=== PATIENT | male | born 1975 | race American Indian/Alaskan Native ===

== ENCOUNTER → 2023-06-14 09:59 | Outpatient (CLI) | payer OTHER, MEDICAID, SELFPAY ==
[2023-06-14 19:48] LABS: Add Manual Diff / Slide Review NO; Basophils Absolute Auto 100 /uL (0-100); Basophils Percent Auto 0.7 % (0-2); Eosinophils Absolute Auto 300 /uL (0-450); Eosinophils Percent Auto 5.2 % (2-4); Hematocrit 44.5 % (41-53); Lymphocytes Absolute Auto 2000 /uL (1100-4500); Lymphocytes Percent Auto 30.2 % (25-40); Mean Corpuscular HGB Conc 33.8 % (30-36); Mean Corpuscular Hemoglobin 27.1 PG (26-34); Mean Corpuscular Volume 80.3 fL (80-100); Monocytes Absolute Auto 700 /uL (0-900); Monocytes Percent Auto 9.8 % (3-14); Neutrophils Absolute Auto 3600 /uL (1500-7000); Neutrophils Percent Auto 54.1 % (50-75); Platelet Count 202 X10^3/uL (150-400); Red Blood Cell Count 5.54 X10^6/uL (4.5-5.9); Red Cell Distribution Width 14.7 % (11.6-14.8); White Blood Cell Count 6.7 X10^3/uL (4.5-11.0)
[2023-06-14 20:13] LABS: Alanine Aminotransferase 40 IU/L (<50); Albumin 4.2 g/dL (3.5-5.0); Albumin Globulin Ratio 1.4 (1.0-2.8); Alkaline Phosphatase 83 U/L (38-126); Aspartate Aminotransferase 34 IU/L (17-59); BUN Creatinine Ratio 22.8 (6-22); Bilirubin Total 1.1 mg/dL (0.2-1.3); Blood Urea Nitrogen 18 mg/dL (9-20); Calcium 9.6 mg/dL (8.4-10.2); Carbon Dioxide 26 mmol/L (22-32); Chloride 104 mmol/L (98-107); Cholesterol 206 mg/dL (140-199); Estimated Glomerular Filt Rate > 60 mL/min (>60); Globulin 2.9 g/dL (1.7-4.1); Glucose 98 mg/dL (70-100); HDL Cholesterol 51 mg/dL (40-60); HEMOLYSIS < 15 (0-50); LDL Cholesterol Calculated 143 mg/dL (<100); Sodium 139 mmol/L (137-145); Total Protein 7.1 g/dL (6.3-8.2); Triglycerides 60 mg/dL (35-150)
[2023-06-14 20:40] LABS: Hemoglobin A1C% w Est Avg Glu 5.5 % (4.0-6.0)
[2023-06-14 20:51] LABS: TSH w/ Reflex to FT4 0.75 uIU/mL (0.47-4.68)
== END ==
PROVIDERS: PCP Family Medicine; Visit Provider Family Medicine
DX: Z13.1 Encounter for screening for diabetes mellitus (principal); Z13.6 Encounter for screening for cardiovascular disorders; Z13.29 Encounter for screening for other suspected endocrine disorder; Z13.0 Encounter for screening for diseases of the blood and blood-forming organs and certain disorders involving the immune mechanism
CPT/HCPCS: 80053; 80061; 83036; 84443; 85025

== ENCOUNTER → 2023-07-09 14:54 | Outpatient (CLI) | payer OTHER, MEDICAID, SELFPAY ==
--- NOTE | 2023-07-11 10:42 | DI.NM.S_ITS ---
DATE OF SERVICE: 07/10/2023 PROCEDURE: Exercise treadmill stress test without imaging. ORDERING PROVIDER: Tatyana Reid MD INDICATIONS: The patient is a 47-year-old male with exertional dyspnea. FINDINGS: 1. The patient was able to exercise for 7 minutes and 35 seconds on a standard Arnoldo protocol suggesting moderate-severely reduced exercise capacity with an PAT of +29%, achieving 8.5 METS. 2. He had a normal heart rate and blood pressure response to exercise, achieving a maximum heart rate of 156 BPM (90% of his predicted maximum). His O2 saturation at peak exercise was borderline decreased at 91%. 3. He had no chest discomfort or other anginal symptoms. 4. His resting ECG showed sinus rhythm with inferior ST depression and T-wave inversion. This became accentuated with stress and associated with additional ST depression in the lateral leads but became upsloping by 1 minute of recover, reducing specificity. There were no arrhythmias. IMPRESSION: 1. Abnormal exercise treadmill stress test for ischemia but with reduced specificity because of resting ECG abnormalities. Consider obtaining an exercise stress test with imaging. 2. Moderate-severely reduced exercise capacity without angina or arrhythmias. Oxygen saturation was borderline low at 91% at peak exercise. Valdo Barber - COURTNEY/nabor/ASHLEE doc#: [id number]/job#: [id number] dd: 07/10/2023 16:48:00 dt: 07/11/2023 02:27:00 DICTATING MD/COPIES TO: Jareth Somers MD; Tatyana Reid MD COPIES CHARLEEN: CHANDLER; ; Tatyana Reid MD
== END ==
PROVIDERS: PCP Family Medicine; Referring Provider Family Medicine; Visit Provider Family Medicine
DX: R06.09 Other forms of dyspnea (principal); R94.39 Abnormal result of other cardiovascular function study; E66.01 Morbid (severe) obesity due to excess calories; Z68.41 Body mass index [BMI] 40.0-44.9, adult
CPT/HCPCS: 93017

== ENCOUNTER → 2024-03-18 13:20 | Outpatient (CLI) | payer BC, SELFPAY ==
[2024-03-18 18:58] LABS: BUN Creatinine Ratio 21.3 (6-22); Blood Urea Nitrogen 17 mg/dL (9-20); Calcium 9.6 mg/dL (8.4-10.2); Carbon Dioxide 30 mmol/L (22-32); Chloride 104 mmol/L (98-107); Estimated Glomerular Filt Rate > 60 mL/min (>60); Glucose 81 mg/dL (70-100); HEMOLYSIS < 15 (0-50); Potassium 4.6 mmol/L (3.4-5.1); Sodium 139 mmol/L (137-145)
[2024-03-18 19:09] LABS: LDL Cholesterol Direct 90 mg/dL (<100)
== END ==
PROVIDERS: PCP Family Medicine; Visit Provider Family Medicine
DX: G47.33 Obstructive sleep apnea (adult) (pediatric) (principal); I10 Essential (primary) hypertension; E78.2 Mixed hyperlipidemia; R06.09 Other forms of dyspnea
CPT/HCPCS: 80048; 83721

== ENCOUNTER 2024-04-15 07:39 | Day surgery (SDC) | payer BC, SELFPAY ==
--- NOTE | 2024-04-15 | PATH_ITS ---
[facility] Accession Number: [id number] No. of containers..01 Tissue . 01 Material submitted: . rectum - RECTAL POLYP X2 . 01 Diagnosis: RECTAL POLYPS: Hyperplastic polyp x2. [facility] 04/17/2024 1120 Local . 01 Electronically signed: . Inocencio Fraga MD, PhD, Pathologist NPI- [id number] . 01 Gross description: . Received in formalin with two patient identifiers and rectal polyp x2, are two humphries soft tissue fragments, 0.5 to 0.6 cm in greatest dimension, submitted in A1. ([id number]) /MRV 04/16/2024 2111 Local . 01 Pathologist provided ICD-10: K62.1 . 01 CPT . 344603 Specimen Comment: A courtesy copy of this report has been sent to [phone] Performed at: [address] [facility] [address] [address], [place], [place] [id number] MD French Sim MD Phone: [phone]
[2024-04-15 08:12] VITALS: BP 134/92; PULSE 68; RESP 20; TEMP 35.8; O2SAT 97
--- NOTE | 2024-04-15 08:15 | PM.HP.1 ---
History of Present Illness History of Present Illness Date Patient Seen: 04/15/24 Time Patient Seen: 08:15 Chief complaint: Colonoscopy w/poss bx Narrative: 48-year-old man positive Cologuard test here for diagnostic colonoscopy. Last colonoscopy 11 years ago. He has a history a sigmoid colectomy for diverticular disease. COUNTS INCLUDE 234 BEDS AT THE [facility] Medical History (Updated 03/16/24 @ 10:40 by Tatyana Reid MD) Mild CAD Paroxysmal nocturnal dyspnea Former tobacco use Dental infection Marijuana dependence EtOH dependence Wheezing History of diverticulitis of colon Surgical History (Updated 10/02/23 @ 20:32 by Tatyana Reid MD) S/P cardiac catheterization History of partial colectomy Social History Smoking Status: Former smoker alcohol intake: current additional social history: has not seen doctor for 5 yrs moved [place] in [place], [employer]: Gerdys all: none meds: aleve TOB: 1 cig/week. was smoking all day MJ ETOH: heavy alcohol. much less now. 2-3 /day MJ: daily exercise: goes to the gym tries to go 3x this week. swim, hike cardio. FHX: negative per pt PGF of heart attack mi at 55 yo no other [facility] 05/2023 [facility] Meds Home Medications and Allergies Home Medications Medication Instructions Recorded Confirmed Type fluticasone 250 mcg-salmeterol 50 1 inh inhalation BID use every 11/18/23 04/15/24 Rx mcg/dose blistr powdr for day. rise mouth after use #60 ea inhalation atorvastatin 20 mg tablet 20 mg PO BEDTIME heart attack/ 12/18/23 04/15/24 Rx stroke prevention #90 tabs buspirone 10 mg tablet See Rx Instructions PO BID PRN 01/22/24 04/15/24 Rx anxiety, irritability #30 tabs lisinopril 10 mg tablet 10 mg PO DAILY for blood pressure. 02/27/24 04/15/24 Rx take every day even if normal #90 tabs aspirin 81 mg capsule 81 mg PO DAILY 04/15/24 04/15/24 History Allergies Allergy/AdvReac Type Severity Reaction Status Date / Time No Known Drug Allergies Allergy Verified 04/15/24 07:55 Exam Vital Signs (past 8 hours): - 04/15/24 08:12 Temperature 96.4 F L Pulse Rate 68 Respiratory Rate 20 Blood Pressure 134/92 H Pulse Oximetry 97 Oxygen Delivery Method Room Air Oxygen Delivery Method Room Air Narrative Exam Narrative: General adult man alert oriented no acute distress Chest nonlabored respiration Extremities warm well perfused Assessment & Plan Assessment and plan (1) Positive colorectal cancer screening using Cologuard test: Status: Acute Assessment & Plan narrative: Diagnostic colonoscopy recommended.. Technical details were discussed. Risks, benefits, alternatives explained. Risks including but not limited to myocardial infarction, aspiration, bleeding, pain, missed lesion, incomplete examination, need for further radiographic studies, intestinal injury, and need for major abdominal surgery were discussed. All questions were answered to their satisfaction, and they are in agreement with this plan. Time-Based Coding :: [TOTAL MINUTES] spent with patient and on the chart (including review of chart, obtaining history, exam, reviewing outside data, placing orders, documenting exam and treatment plan, and counseling patient) on [DATE].
[2024-04-15 09:23] VITALS: BP 111/74; PULSE 62; RESP 16; TEMP 36.2; O2SAT 93
--- NOTE | 2024-04-15 09:26 | P.OP.COLON_ITS ---
Operative Date/Time/Diagnoses Date of procedure: 04/15/24 Time of procedure: 09:26 Pre-op diagnosis: Positive Cologuard Post-op diagnosis: other (Colonic polyps x2) Procedure & Clinicians Study performed: Diagnostic colonoscopy and polypectomy Same procedure as scheduled: Yes Indications: Positive Cologuard Surgeon: Cesar Gar Procedure Notes Procedure in detail: The history and physical was performed/updated and the patient is ASA class is 2. The procedure was discussed in detail with the patient. Potential risks complications including infection, bleeding, missed diagnosis, perforation, need for surgery, and were explained. Their questions were answered and informed consent was obtained. Patient was brought to the procedure room and placed standard monitoring equipment. The patient's vital signs were monitored continuously throughout the entire procedure. Prior to starting time-out was performed. The patient was placed in the left lateral recumbent position. Procedural sedation was administered by anesthesia. Examination began with a thorough inspection of the perianal area there was no evidence of fissures, fistulae, external hemorrhoids or cutaneous malignancy. The colonoscopy scope was then placed into the anal canal and was advanced to the cecum, which was identified by the ileocecal valve, the appendiceal orifice and the confluence of the taenia. The scope was then slowly withdrawn examining colon thoroughly in all directions, irrigating it of any residual stool. The scope was retroflexed within the rectum The patient tolerated the procedure well. They will be discharged once criteria are met. The prep was of good/excellent quality. The withdrawl time was 7 minutes. FINDINGS * Rectum polyps each proximally 5 mm removed with cold snare * Normal colon rectal anastomosis. * Mild diverticulosis of distal colon Specimen(s): other (Rectal polyps x2) Impression: Colonic polyps x2 Post-procedure Recommendations: Colonoscopy in 5 years and High fiber diet Disposition: same day surgery
[2024-04-15 09:28] VITALS: BP 111/75; PULSE 65; RESP 18; O2SAT 96
[2024-04-15 09:33] VITALS: BP 118/85; PULSE 64; RESP 18; TEMP 36.7; O2SAT 96
[2024-04-15 09:38] VITALS: BP 123/93; PULSE 66; RESP 14; O2SAT 98
== END 2024-04-15 10:25 | disposition home or self-care (01) ==
PROVIDERS: PCP Family Medicine; Referring Provider Surgery; Visit Provider Surgery
PROC: 0DJD8ZZ Inspection of Lower Intestinal Tract, Via Natural or Artificial Opening Endoscopic (ICD-10-PCS; CPT 45378; principal; 2024-04-15 08:45)
DX: Z12.11 Encounter for screening for malignant neoplasm of colon (principal); R19.5 Other fecal abnormalities; Z90.49 Acquired absence of other specified parts of digestive tract; K57.30 Diverticulosis of large intestine without perforation or abscess without bleeding; K62.1 Rectal polyp
CPT/HCPCS: 45385; J2704

== ENCOUNTER 2024-09-17 15:24 | Emergency (ER) | payer BC, SELFPAY ==
[2024-09-17 15:40] VITALS: BP 119/77; PULSE 63; RESP 14; TEMP 36.9; O2SAT 98; BMI 39.1
--- NOTE | 2024-09-17 16:56 | ED.ABDPAIN ---
HPI - Abdominal Pain <Jocelin Croft PA-C - Last Filed: 09/17/24 19:56> General Chief Complaint: Abdominal Pain Stated Complaint: R Lower Abdominal Pain Time Seen by Provider: 09/17/24 16:56 Mode of arrival: Ambulatory History of Present Illness HPI narrative: Mr. Barber is a pleasant 48-year-old male with a past medical history of diverticulitis s/p sigmoidectomy 20 years ago, AB, HTN, HLD who presents to the emergency department for quadrant abdominal pain since 11:00 a.m. this morning. Patient was sitting on his couch watching TV when he developed subtle gradually worsening sharp stabbing pain in the right lower quadrant of the abdomen that has persisted and gotten worse. Not relieved with a joint, an edible, oxycodone, Tylenol. Denies fevers, chills, chest pain, shortness of breath, nausea, vomiting, diarrhea, constipation, dysuria, hematuria, flank pain. Pain is worsened with deep palpation and with taking a deep breath. He went to the clinic on [facility] who sent him here for further evaluation. Related Data Home Medications Medication Instructions Recorded Confirmed aspirin 81 mg capsule 81 mg PO DAILY 04/15/24 09/17/24 Previous Rx's Medication Instructions Recorded fluticasone 250 mcg-salmeterol 50 1 inh inhalation BID use every 11/18/23 mcg/dose blistr powdr for day. rise mouth after use #60 ea inhalation atorvastatin 20 mg tablet 20 mg PO BEDTIME heart attack/ 12/18/23 stroke prevention #90 tabs lisinopril 10 mg tablet 10 mg PO DAILY for blood pressure. 08/29/24 take every day even if normal #90 tabs Allergies Allergy/AdvReac Type Severity Reaction Status Date / Time No Known Drug Allergies Allergy Verified 09/17/24 15:40 Review of Systems <Jocelin Croft PA-C - Last Filed: 09/17/24 19:56> Review of Systems ROS Unobtainable: All systems reviewed & are unremarkable except as noted in HPI and below Patient History <Jocelin Croft PA-C - Last Filed: 09/17/24 19:56> Medical History Mild CAD Paroxysmal nocturnal dyspnea Former tobacco use Dental infection Marijuana dependence EtOH dependence Wheezing History of diverticulitis of colon Surgical History S/P cardiac catheterization History of partial colectomy Social History Smoking Status: Unknown if ever smoked alcohol intake: current additional social history: has not seen doctor for 5 yrs moved [place], [place], [place] [employer]: [place] all: none meds: aleve TOB: 1 cig/week. was smoking all day MJ ETOH: heavy alcohol. much less now. 2-3 /day MJ: daily exercise: goes to the gym tries to go 3x this week. swim, hike cardio. FHX: negative per pt PGF of heart attack mi at 55 yo no other [facility] 05/2023 js Smoking Status: Unknown if ever smoked Exam <Jocelin Croft PA-C - Last Filed: 09/17/24 19:56> Narrative Exam Narrative: GENERAL: 48 year old patient appears stated age. Well-developed patient, in no acute distress. HEAD: Atraumatic. Normocephalic. NECK: Trachea midline. Cervical ROM intact. CARDIOVASCULAR: Regular rate and rhythm. RESPIRATORY: ?Nonlabored respirations. ?Speaking in clear, full sentences. ?Clear to auscultation. Breath sounds equal bilaterally. GASTROINTESTINAL: Abdomen soft, non-tender, nondistended. Bowel sounds present. Patient has reported tenderness to palpation at [place]'s point, only present with deep palpation. No rebound or guarding. Negative psoas sign, negative Rovsing sign. EXTREMITIES: No edema or joint tenderness. BACK: No CVA tenderness. NEURO: AOx3. ?Clear speech. ?Moves all 4 extremities appropriately. SKIN: No rash or erythema of visible areas Initial Vital Signs Initial Vital Signs: Vital Signs Temperature 98.4 F 09/17/24 15:40 Pulse Rate 63 09/17/24 15:40 Respiratory Rate 14 09/17/24 15:40 Blood Pressure 119/77 09/17/24 15:40 Pulse Oximetry 98 09/17/24 15:40 Oxygen Delivery Method Room Air 09/17/24 15:40 <Rimma Alberto DO - Last Filed: 09/17/24 23:20> Initial Vital Signs Initial Vital Signs: Vital Signs Temperature 98.4 F 09/17/24 15:40 Pulse Rate 63 09/17/24 15:40 Respiratory Rate 14 09/17/24 15:40 Blood Pressure 119/77 09/17/24 15:40 Pulse Oximetry 98 09/17/24 15:40 Oxygen Delivery Method Room Air 09/17/24 15:40 Course <Jocelin Croft PA-C - Last Filed: 09/17/24 19:56> Orders Ordered: ED Orders 09/17/24 16:40 Complete Blood Count AUTO DIFF Stat Comprehensive Metabolic Panel Stat Lipase Stat 09/17/24 17:07 CT abdomen pelvis w con Stat Discontinued Medications Sodium Chloride (Normal Saline 0.9%) 1,000 mls @ 1,000 mls/hr IV BOLUS ONE Stop: 09/17/24 18:30 Last Infusion: 09/17/24 18:31 Dose: Infused Documented By: Admin: 09/17/24 17:38 Dose: 1,000 mls/hr Documented By: NATO Ketorolac Tromethamine (Ketorolac 30 Mg/Ml Vial) 15 mg IV NOW ONE Stop: 09/17/24 19:22 Last Admin: 09/17/24 19:45 Dose: 15 mg Documented By: NATO Morphine Sulfate (Morphine 4 Mg/Ml Inj) 4 mg IV NOW ONE Stop: 09/17/24 17:08 Last Admin: 09/17/24 17:17 Dose: 4 mg Documented By: NATO Ondansetron HCl (Ondansetron 4 Mg/2 Ml Inj) 4 mg IV NOW PRN PRN Reason: Nausea And Vomiting Last Admin: 09/17/24 17:17 Dose: 4 mg Documented By: NATO Ondansetron HCl (Ondansetron 4 Mg Odt) 4 mg PO NOW PRN PRN Reason: Nausea And Vomiting Vital Signs Vital signs: Vital Signs - 8 hr 09/17/24 15:40 09/17/24 17:29 09/17/24 17:30 Temperature 98.4 F Pulse Rate 63 57 L Respiratory Rate 14 16 Blood Pressure 119/77 112/58 L 98/59 L Pulse Oximetry 98 99 Oxygen Delivery Method Room Air Room Air 09/17/24 17:41 09/17/24 18:46 09/17/24 19:49 Temperature 97.9 F Pulse Rate 53 L 65 61 Respiratory Rate 16 16 16 Blood Pressure 95/63 120/76 107/60 Pulse Oximetry 99 97 96 Oxygen Delivery Method Room Air Room Air Room Air <Rimma Alberto DO - Last Filed: 09/17/24 23:20> Orders Ordered: ED Orders 09/17/24 16:40 Complete Blood Count AUTO DIFF Stat Comprehensive Metabolic Panel Stat Lipase Stat 09/17/24 17:07 CT abdomen pelvis w con Stat Discontinued Medications Sodium Chloride (Normal Saline 0.9%) 1,000 mls @ 1,000 mls/hr IV BOLUS ONE Stop: 09/17/24 18:30 Last Infusion: 09/17/24 18:31 Dose: Infused Documented By: Admin: 09/17/24 17:38 Dose: 1,000 mls/hr Documented By: SB Ketorolac Tromethamine (Ketorolac 30 Mg/Ml Vial) 15 mg IV NOW ONE Stop: 09/17/24 19:22 Last Admin: 09/17/24 19:45 Dose: 15 mg Documented By: SB Morphine Sulfate (Morphine 4 Mg/Ml Inj) 4 mg IV NOW ONE Stop: 09/17/24 17:08 Last Admin: 09/17/24 17:17 Dose: 4 mg Documented By: SB Ondansetron HCl (Ondansetron 4 Mg/2 Ml Inj) 4 mg IV NOW PRN PRN Reason: Nausea And Vomiting Last Admin: 09/17/24 17:17 Dose: 4 mg Documented By: SB Ondansetron HCl (Ondansetron 4 Mg Odt) 4 mg PO NOW PRN PRN Reason: Nausea And Vomiting Vital Signs Vital signs: Vital Signs - 8 hr 09/17/24 15:40 09/17/24 17:29 09/17/24 17:30 Temperature 98.4 F Pulse Rate 63 57 L Respiratory Rate 14 16 Blood Pressure 119/77 112/58 L 98/59 L Pulse Oximetry 98 99 Oxygen Delivery Method Room Air Room Air 09/17/24 17:41 09/17/24 18:46 09/17/24 19:49 Temperature 97.9 F Pulse Rate 53 L 65 61 Respiratory Rate 16 16 16 Blood Pressure 95/63 120/76 107/60 Pulse Oximetry 99 97 96 Oxygen Delivery Method Room Air Room Air Room Air MDM - Abdominal Pain <Jocelin Croft PA-C - Last Filed: 09/17/24 19:56> Medical Records Attestation: I reviewed the patient's medical records. Medical records narrative: PCP note today with Dr. Jareth Mills. Lab Data 09/17/24 16:40 09/17/24 16:40 Labs: Lab Results 09/17/24 Range/Units 16:40 WBC 6.9 (4.5-11.0) X10^3/uL RBC 5.32 (4.5-5.9) X10^6/uL Hgb 14.8 (13.5-17.5) g/dL Hct 43.3 (41-53) % MCV 81.5 (80-100) fL MCH 27.9 (26-34) PG MCHC 34.2 (30-36) % RDW 14.0 (11.6-14.8) % Plt Count 168 (150-400) X10^3/uL Neut % (Auto) 62.1 (50-75) % Lymph % (Auto) 27.2 (25-40) % [place] % (Auto) 7.4 (3-14) % Eos % (Auto) 2.8 (2-4) % Baso % (Auto) 0.5 (0-2) % Neut # (Auto) 4300 (9949-7278) /uL Lymph # (Auto) 1900 (0542-9379) /uL [place] # (Auto) 500 (0-900) /uL Eos # (Auto) 200 (0-450) /uL Baso # (Auto) 0 (0-100) /uL Sodium 139 (137-145) mmol/L Potassium 4.1 (3.4-5.1) mmol/L Chloride 107 (98-107) mmol/L Carbon Dioxide 25 (22-32) mmol/L BUN 16 (9-20) mg/dL Creatinine 0.80 (0.66-1.25) mg/dL Estimated GFR > 60 (>60) mL/min BUN/Creatinine Ratio 20.0 (6-22) Glucose 105 H (70-99) mg/dL Calcium 9.2 (8.4-10.2) mg/dL Total Bilirubin 0.7 (0.2-1.3) mg/dL AST 34 (17-59) IU/L ALT 37 (<50) IU/L Alkaline Phosphatase 88 (38-126) U/L Total Protein 7.2 (6.3-8.2) g/dL Albumin 4.5 (3.5-5.0) g/dL Globulin 2.7 (1.7-4.1) g/dL Albumin/Globulin Ratio 1.7 (1.0-2.8) Lipase 192 (23-300) U/L Point of care testing: Urine Dip Bedside Urine Glucose Negative Bedside Urine Bilirubin - Negative Bedside Urine Ketone - Negative Urine Specific [place] 1.030 Bedside Urine Occult Blood - Negative Bedside Urine pH 5.5 Bedside Urine Protein - Negative Bedside Urine Urobilinogen - Negative Bedside Urine Nitrite - Negative Bedside Urine Leukocytes - Negative Esterase Imaging Data CT scan - abdomen/pelvis: Radiologist's Impression: PROCEDURE: CT ABDOMEN PELVIS W CON INDICATIONS: RLQ abd pain. hx sigmoidectomy. TECHNIQUE: After the administration of intravenous contrast, axial sections acquired from the lung bases to the pubic symphysis. Coronal and sagittal reformats were performed. For radiation dose reduction, the following was used: automated exposure control, adjustment of mA and/or kV according to patient size. COMPARISON: None. FINDINGS: Image quality: Diagnostic. Lower Chest: 3 mm left lower lobe nodule series 3, image 20. No priors. ABDOMEN: Liver: No solid mass. Gallbladder: No radiopaque gallstones or wall thickening. Biliary ducts: No biliary dilation. Pancreas: No ductal dilation. Spleen: Size is within normal limits. Adrenal Glands: No adrenal nodules. Kidneys and Ureters: No hydronephrosis. Punctate nonobstructing right renal calcification. Stomach and Bowel: Normal colonic caliber, without significant wall thickening. Appendix is normal. Colonic diverticula present. Peritoneum: No abnormal intraperitoneal fluid. No free air. Ventral Wall: No significant ventral hernia. Abdominal Nodes: No retroperitoneal or mesenteric adenopathy by size criteria. Vessels: Aorta and inferior vena cava are normal in size. PELVIS: Pelvic Organs: Unremarkable. Bladder: No bladder wall thickening, accounting for underdistention. Pelvic Nodes: No enlarged lymph nodes. Miscellaneous: Fat containing inguinal hernias are seen. Bones: No aggressive osseous abnormality. IMPRESSION: No acute intra-abdominal or pelvic process. Punctate nonobstructing right renal calculus. Appendix is normal. Nonspecific 3 mm left lower lobe nodule. If patient is considered high risk, [address] follow-up is recommended. Dictated by: Mignon Fan M.D. on 09/17/2024 at 19:02 Approved by: Mignon Fan M.D. on 09/17/2024 at 19:04 [facility] Narrative Medical decision making narrative: 48-year-old male with a past medical history of diverticulitis s/p sigmoidectomy 20 years ago, AB, HTN, HLD who presents to the emergency department for quadrant abdominal pain since 11:00 a.m. this morning. Differential diagnosis includes but is not limited to appendicitis, epiploic appendagitis, UTI, nephrolithiasis, diverticulitis, SBO, muscle strain, etc. On exam the patient is in no acute distress, nontoxic appearing, vital signs appropriate. He has reported pain with deep palpation of the right lower quadrant of the abdomen specifically at [place]'s point, it is quite difficult for me to elicit as he states it is only present with a very deep palpation however pain is also worse with movement. No inciting injury. Abdominal labs obtained in triage, we will obtain CT abdomen and pelvis with IV contrast, treat pain with Zofran and morphine at this time. Point of care UA negative. Labs overall reassuring with a normal WBC count 6.9, remainder of CBC all within normal limits. Normal sodium 139, potassium 4.1 when BUN 16, creatinine 0.80. Glucose 105. Normal LFTs. Normal lipase 192. CT AP reveals no acute intra-abdominal or pelvic process. Punctate nonobstructing right renal calculus. Appendix is normal. Nonspecific 3 mm left lower lobe nodule. Patient's pain was not completely resolved so we will also try Toradol. Discussed all results with the patient, provided him with a printed copy of his CT scan report and discussed incidental findings and the importance of follow up with CT scan of chest in 12 months for left lower lobe nodule, he does have a remote history of tobacco smoking. At this time it is not 100% clear what is causing the patient's abdominal pain so we discussed supportive care with rest, hydration, bland diet, ibuprofen/acetaminophen as needed for pain, prompt follow up with PCP and very strict ED return precautions. Repeat abdominal exam is benign. Patient verbalized understanding of all information, is agreeable with the plan, stable for discharge home. <Rimma Alberto, - Last Filed: 09/17/24 23:20> Lab Data Labs: Lab Results 09/17/24 Range/Units 16:40 WBC 6.9 (4.5-11.0) X10^3/uL RBC 5.32 (4.5-5.9) X10^6/uL Hgb 14.8 (13.5-17.5) g/dL Hct 43.3 (41-53) % MCV 81.5 (80-100) fL MCH 27.9 (26-34) PG MCHC 34.2 (30-36) % RDW 14.0 (11.6-14.8) % Plt Count 168 (150-400) X10^3/uL Neut % (Auto) 62.1 (50-75) % Lymph % (Auto) 27.2 (25-40) % [place] % (Auto) 7.4 (3-14) % Eos % (Auto) 2.8 (2-4) % Baso % (Auto) 0.5 (0-2) % Neut # (Auto) 4300 (4473-7713) /uL Lymph # (Auto) 1900 (3807-8173) /uL [place] # (Auto) 500 (0-900) /uL Eos # (Auto) 200 (0-450) /uL Baso # (Auto) 0 (0-100) /uL Sodium 139 (137-145) mmol/L Potassium 4.1 (3.4-5.1) mmol/L Chloride 107 (98-107) mmol/L Carbon Dioxide 25 (22-32) mmol/L BUN 16 (9-20) mg/dL Creatinine 0.80 (0.66-1.25) mg/dL Estimated GFR > 60 (>60) mL/min BUN/Creatinine Ratio 20.0 (6-22) Glucose 105 H (70-99) mg/dL Calcium 9.2 (8.4-10.2) mg/dL Total Bilirubin 0.7 (0.2-1.3) mg/dL AST 34 (17-59) IU/L ALT 37 (<50) IU/L Alkaline Phosphatase 88 (38-126) U/L Total Protein 7.2 (6.3-8.2) g/dL Albumin 4.5 (3.5-5.0) g/dL Globulin 2.7 (1.7-4.1) g/dL Albumin/Globulin Ratio 1.7 (1.0-2.8) Lipase 192 (23-300) U/L Point of care testing: Urine Dip Bedside Urine Glucose Negative Bedside Urine Bilirubin - Negative Bedside Urine Ketone - Negative Urine Specific [place] 1.030 Bedside Urine Occult Blood - Negative Bedside Urine pH 5.5 Bedside Urine Protein - Negative Bedside Urine Urobilinogen - Negative Bedside Urine Nitrite - Negative Bedside Urine Leukocytes - Negative Esterase Discharge Plan Departure Patient Disposition: Home Clinical Impression: Abdominal pain, RLQ, Left lower lobe pulmonary nodule Instructions: DI for Abdominal Pain-Adult Activity Restrictions/Additional Instructions: Dear Mr. Barber, Thank you for coming to the emergency department. Today, we completed a work up for right lower quadrant abdominal pain. Sometimes, we do not always find the cause for your symptoms in one ER visit. The findings on your exam today and on your blood work and imaging is reassuring. At this time, it is not 100% certain what is causing your symptoms, but we feel you can be discharged from the emergency department. It is possible this may worsen or you may get better. Please, if you get worse or your symptoms change, return to the emergency department. Otherwise, please follow up with your primary care doctor in 1-2 days or any of the specialists we have provided or recommended. Please take Ibuprofen (Motrin/Advil) or Acetaminophen (Tylenol) for pain. These are available over the counter. You may take Ibuprofen 600 mg every 8 hours with food for pain. You may also take Acetaminophen 650 mg every 4-6 hours for pain. Do not exceed 3000 mg of Tylenol a day as this can cause liver damage. Do not drink alcohol with either of these medications. Please follow up with your primary care doctor within the next 2-3 days for ER follow-up. (If you do not have a PCP you can call [phone]. ?to schedule an appointment with an [facility] Primary Care Provider) IF YOU DEVELOP ANY NEW OR WORSENING SYMPTOMS, RETURN TO THE ER! Please read the attached instructions, they highlight more specific treatments and interventions for you at home. Thank you for letting me participate in your care, Jocelin Croft PA-C Prescriptions: No Action atorvastatin 20 mg tablet 20 mg PO BEDTIME Qty: 90 2RF Rx Instructions: take with ASA 81mg every night lisinopril 10 mg tablet 10 mg PO DAILY Qty: 90 0RF Rx Instructions: stop atenolol aspirin 81 mg Capsule 81 mg PO DAILY fluticasone propion-salmeterol 250-50 mcg/dose blister with device 1 inh inhalation BID Qty: 60 12RF Referrals: Tatyana Reid MD [Primary Care Provider] - Stand Alone Forms: Patient Portal/API/Survey ED Sign-out <Rimma Alberto DO - Last Filed: 09/17/24 23:20> Cosign ED Attending Cosignature Attestation: I was immediately available in the department for consultation.
--- NOTE | 2024-09-17 17:07 | DI.CT.S_ITS ---
PROCEDURE: CT ABDOMEN PELVIS W CON INDICATIONS: RLQ abd pain. hx sigmoidectomy. TECHNIQUE: After the administration of intravenous contrast, axial sections acquired from the lung bases to the pubic symphysis. Coronal and sagittal reformats were performed. For radiation dose reduction, the following was used: automated exposure control, adjustment of mA and/or kV according to patient size. COMPARISON: None. FINDINGS: Image quality: Diagnostic. Lower Chest: 3 mm left lower lobe nodule series 3, image 20. No priors. ABDOMEN: Liver: No solid mass. Gallbladder: No radiopaque gallstones or wall thickening. Biliary ducts: No biliary dilation. Pancreas: No ductal dilation. Spleen: Size is within normal limits. Adrenal Glands: No adrenal nodules. Kidneys and Ureters: No hydronephrosis. Punctate nonobstructing right renal calcification. Stomach and Bowel: Normal colonic caliber, without significant wall thickening. Appendix is normal. Colonic diverticula present. Peritoneum: No abnormal intraperitoneal fluid. No free air. Ventral Wall: No significant ventral hernia. Abdominal Nodes: No retroperitoneal or mesenteric adenopathy by size criteria. Vessels: Aorta and inferior vena cava are normal in size. PELVIS: Pelvic Organs: Unremarkable. Bladder: No bladder wall thickening, accounting for underdistention. Pelvic Nodes: No enlarged lymph nodes. Miscellaneous: Fat containing inguinal hernias are seen. Bones: No aggressive osseous abnormality. IMPRESSION: No acute intra-abdominal or pelvic process. Punctate nonobstructing right renal calculus. Appendix is normal. Nonspecific 3 mm left lower lobe nodule. If patient is considered high risk, [address] follow-up is recommended. Dictated by: Mignon Fan M.D. on 09/17/2024 at 19:02 Approved by: Mignon Fan M.D. on 09/17/2024 at 19:04
[2024-09-17 17:11] LABS: Add Manual Diff / Slide Review NO; Basophils Absolute Auto 0 /uL (0-100); Basophils Percent Auto 0.5 % (0-2); Eosinophils Absolute Auto 200 /uL (0-450); Eosinophils Percent Auto 2.8 % (2-4); Hematocrit 43.3 % (41-53); Hemoglobin 14.8 g/dL (13.5-17.5); Lymphocytes Absolute Auto 1900 /uL (1100-4500); Lymphocytes Percent Auto 27.2 % (25-40); Mean Corpuscular HGB Conc 34.2 % (30-36); Mean Corpuscular Hemoglobin 27.9 PG (26-34); Mean Corpuscular Volume 81.5 fL (80-100); Monocytes Absolute Auto 500 /uL (0-900); Monocytes Percent Auto 7.4 % (3-14); Neutrophils Absolute Auto 4300 /uL (1500-7000); Neutrophils Percent Auto 62.1 % (50-75); Platelet Count 168 X10^3/uL (150-400); Red Blood Cell Count 5.32 X10^6/uL (4.5-5.9); White Blood Cell Count 6.9 X10^3/uL (4.5-11.0)
[2024-09-17] MEDS: ONDANSETRON 4 MG/2 ML INJ IV (17:17)
[2024-09-17] MEDS: MORPHINE 4 MG/ML INJ IV (17:17)
[2024-09-17 17:29] VITALS: BP 112/58; PULSE 57; RESP 16; O2SAT 99
[2024-09-17 17:30] VITALS: BP 98/59
[2024-09-17] MEDS: SODIUM CHLORIDE 0.9% 1,000 ML 1000 ML IV (17:38)
[2024-09-17 17:41] VITALS: BP 95/63; PULSE 53; RESP 16; O2SAT 99
[2024-09-17 18:11] LABS: Alanine Aminotransferase 37 IU/L (<50); Albumin 4.5 g/dL (3.5-5.0); Albumin Globulin Ratio 1.7 (1.0-2.8); Alkaline Phosphatase 88 U/L (38-126); Aspartate Aminotransferase 34 IU/L (17-59); Bilirubin Total 0.7 mg/dL (0.2-1.3); Blood Urea Nitrogen 16 mg/dL (9-20); Calcium 9.2 mg/dL (8.4-10.2); Carbon Dioxide 25 mmol/L (22-32); Chloride 107 mmol/L (98-107); Estimated Glomerular Filt Rate > 60 mL/min (>60); Globulin 2.7 g/dL (1.7-4.1); Glucose 105 mg/dL (70-99); HEMOLYSIS < 15 (0-50); Lipase 192 U/L (23-300); Potassium 4.1 mmol/L (3.4-5.1); Sodium 139 mmol/L (137-145); Total Protein 7.2 g/dL (6.3-8.2)
[2024-09-17 18:46] VITALS: BP 120/76; PULSE 65; RESP 16; O2SAT 97
[2024-09-17] MEDS: KETOROLAC 30 MG/ML VIAL 15 MG IV (19:45)
[2024-09-17 19:49] VITALS: BP 107/60; PULSE 61; RESP 16; TEMP 36.6; O2SAT 96
== END 2024-09-17 20:01 | disposition home or self-care (01) ==
PROVIDERS: Family Medicine; Emergency Provider Physician Assistant; PCP Family Medicine
DX: R10.31 Right lower quadrant pain (principal); R91.1 Solitary pulmonary nodule
CPT/HCPCS: 36415; 74177; 80053; 81003; 83690; 85025; 96361; 96374; 96375; 99284; J1885; J2270; J2405; Q9967

== ENCOUNTER → 2025-01-28 11:25 | Outpatient (CLI) | payer BC, SELFPAY ==
[2025-01-28 18:40] LABS: Hematocrit 44.3 % (41-53); Hemoglobin 15.5 g/dL (13.5-17.5); Mean Corpuscular HGB Conc 34.9 % (30-36); Mean Corpuscular Hemoglobin 27.8 PG (26-34); Mean Corpuscular Volume 79.6 fL (80-100); Platelet Count 195 X10^3/uL (150-400)
[2025-01-28 18:53] LABS: Alanine Aminotransferase 54 IU/L (<50); Albumin 4.2 g/dL (3.5-5.0); Albumin Globulin Ratio 1.6 (1.0-2.8); Alkaline Phosphatase 93 U/L (38-126); Blood Urea Nitrogen 15 mg/dL (9-20); Calcium 9.5 mg/dL (8.4-10.2); Carbon Dioxide 24 mmol/L (22-32); Chloride 106 mmol/L (98-107); Cholesterol 134 mg/dL (140-199); Estimated Glomerular Filt Rate > 60 mL/min (>60); Globulin 2.7 g/dL (1.7-4.1); Glucose 96 mg/dL (70-99); HDL Cholesterol 43 mg/dL (40-60); HEMOLYSIS 18 (0-50); Potassium 4.4 mmol/L (3.4-5.1); Sodium 138 mmol/L (137-145); Total Protein 6.9 g/dL (6.3-8.2); Triglycerides 99 mg/dL (35-150)
[2025-01-28 19:00] LABS: Hemoglobin A1C% w Est Avg Glu 5.8 % (4.0-6.0)
== END ==
PROVIDERS: PCP Family Medicine; Visit Provider Family Medicine
DX: I10 Essential (primary) hypertension (principal); Z13.1 Encounter for screening for diabetes mellitus; E66.01 Morbid (severe) obesity due to excess calories; Z68.41 Body mass index [BMI] 40.0-44.9, adult; F10.20 Alcohol dependence, uncomplicated; I25.10 Atherosclerotic heart disease of native coronary artery without angina pectoris; E78.2 Mixed hyperlipidemia
CPT/HCPCS: 80053; 80061; 83036; 85027